=== PATIENT | male | born 2005 | race Asian ===

== ENCOUNTER 2024-08-03 19:02 | Emergency (ER) | payer OTHER ==
[~2024-08-03] VITALS: Ht 182.9 cm; Wt 106.8 kg
--- NOTE | 2024-08-03 21:05 | ED.PDOC ---
History of Present Illness(SKN HPI Comments PATIENT C/O LEFT BUTTOCK/ RECTAL PAIN. WAS SEEN AT URGENT CARE 2 DAYS AGO, PRESCRIBED IBUPROFEN AND TYLENOL WITHOUT RELIEF OF PAIN. STATES PAIN INCREASES WITH HAVING A BM, OR SITTING. Chief Complaint: Abscess Time Seen by MD: 19:23 History of Present Illness: Nurses Notes, Medications, Allergies Allergies: Coded Allergies: NO KNOWN ALLERGIES (Unverified , 08/03/24) Home Meds Active Scripts Oxycodone W/ Acetaminophen (Percocet 5/325MG) 1 Tab Tb, 2 TAB PO QID PRN for 4 Days, #32 TAB Prov:SARAH GRANDA MD 08/04/24 Sulfamethoxazole W/Trimethopri (Bactrim Ds Tablet) 1 Tab Tb, 1 TAB PO BID for 10 Days, #20 TAB Prov:SARAH GRANDA MD 08/04/24 Information Source: Patient Mode of Arrival: Ambulatory Past Medical History PAST MEDICAL HISTORY: Denies Surgical History: Denies all surgeries Constitutional: denies: chills, diaphoresis, fatigue, fever, malaise, sweats, weakness, others EENTM: denies: blurred vision, double vision, ear bleeding, ear discharge, ear drainage, ear pain, ear ringing, eye pain, eye redness, hearing loss, mouth leta n, mouth swelling, nasal discharge, nose bleeding, nose congestion, nose pain, photophobia, tearing, throat pain, throat swelling, voice changes, others Respiratory: denies: cough, hemoptysis, orthopnea, SOB at rest, shortness of breath, SOB with excertion, stridor, wheezing, others Cardiovascular: denies: chest pain, dizzy spells, diaphoresis, Dyspnea on exertion, edema, irregular heart beat, left arm pain, lightheadedness, palpitations, PND, syncope, others Gastrointestinal: denies: abdomen distended, abdominal pain, blood streaked bowels, constipated, diarrhea, dysphagia, difficulty swallowing, hematemesis, melena, nausea, poor appetite, poor fluid intake, rectal bleeding, rectal pain, vomiting, others Genitourinary: denies: burning, dysuria, flank pain, frequency, hematuria, incontinence, penile discharge, penile sore, pain, testicle pain, testicle swelling, urgency, others Neurological: denies: dizziness, fainting, headache, left sided numbness, left sided weakness, numbness, paresthesia, pre-existing deficit, right sided numbness, right sided weakness, seizure, speech problems, tingling, tremors, weakness, others Musculoskeletal: reports: others (LEFT BUTTOCK PAIN ); denies: back pain, gout, joint pain, joint swelling, muscle pain, muscle stiffness, neck pain Integumetry: denies: bruises, change in color, change in hair/nails, dryness, laceration, lesions, lumps, rash, wounds, others Allergic/Immunocompromised: denies: Difficulty Healing, Frequent Infections, Hives, Itching, others Hematologic/Lymphatic: denies: anemia, blood clots, easy bleeding, easy bruising, swollen glands, others Endocrine: denies: excessive hunger, excessive sweating, excessive thirst, excessive urination, flushing, intolerance to cold, intolerance to heat, unexplained weight gain, unexplained weight loss, others Psychiatric: denies: anxiety, bipolar disorder, depression, hopeless, panic disorder, schizophrenia, sleepless, suicidal, others Physical Exam General Appearance: No Apparent Distress, Normal HEENT: Pharynx Normal Neck: Full Range of Motion, Non-Tender Respiratory: Lungs Clear, No Respiratory Distress, Normal Breath Sounds Cardiovascular: No Murmur, Normal Peripheral Pulses, Regular Rate/Rhythm Breast Exam: Deferred Gastrointestinal: No Organomegaly, Non Tender, No Pulsatile Mass, Normal Bowel Sounds, Soft Genitalia: Deferred Pelvic: Deferred Rectal: Deferred Extremities: Normal capillary refill, Normal inspection, Normal range of motion, Non-tender, No pedal edema Musculoskeletal : Apperance: Normal Neurologic: Alert, No Motor Deficits, Normal Affect, Normal Mood, No Sensory Deficits Cerebellar Function: Normal Reflexes: Normal Skin: Dry, Normal Color, Warm, Other (MODERATE TENDERNESS PALPATED OVER LEFT BUTTOCK AND GLUTEAL FOLD NO OBVIOUS EXTERNAL CELLULITIS OR ABSCESS) Lymphatic: No Adenopathy Was a procedure done? Was a procedure done?: No Differential Diagnosis (INTG) Differential Diagnosis: Cellulitis X-Ray, Labs, Meds, VS Vital Signs Date Time Temp Pulse Resp B/P (MAP) Pulse Ox O2 Delivery O2 Flow Rate FiO2 08/04/24 00:31 99.3 101 18 153/71 (98) 96 99.3 08/04/24 00:14 101 18 153/71 08/03/24 23:56 95 18 95 Room Air* 0 21 08/03/24 23:44 95 18 143/97 08/03/24 22:21 98.2 95 18 143/97 (112) 97 98.2 08/03/24 19:15 99.4 108 19 155/98 (117) 98 99.4 Time of 1ST Reevaluation: 19:30 Reevaluation 1ST: Unchanged Time of 2ND Reevaluation: 00:24 Reevaluation 2ND: Improved Patient Education/Counseling: Diagnosis, Treatment, Prognosis, Need For Follow Up Family Education/Counseling: No Family Present Departure 1 Departure Time of Disposition: 00:23 Impression: Primary Impression: Abscess, perianal Disposition: 01 HOME / SELF CARE / HOMELESS Condition: Stable e-Prescriptions Oxycodone W/ Acetaminophen (Percocet 5/325MG) 1 Tab Tb 2 TAB PO QID PRN for 4 Days, #32 TAB Prov: SARAH GRANDA MD 08/04/24 Sulfamethoxazole W/Trimethopri (Bactrim Ds Tablet) 1 Tab Tb 1 TAB PO BID for 10 Days, #20 TAB Prov: SARAH GRANDA MD 08/04/24 Discharged With: Relative (Mother) Critical Care Note Critical Care Time?: No Stability Stability form required: PETR Holliday August 03, 2024 21:05
[2024-08-03] MEDS: MORPHINE SULFATE INJ 2 MG/ml SYRG IM ONE (23:44)
--- NOTE | 2024-08-03 23:47 | DVH ---
CLINICAL HISTORY: Rectal/buttocks pain right side rule out rectal abscess TECHNIQUE: CT of the pelvis was performed without intravenous contrast. This exam was performed acco rding to our departmental dose optimization program. Up-to-date CT equipment and radiation dose reduc tion techniques are utilized as appropriate. CTDI: 0.48+ 22.89 DLP: 876.37 WID: COMPARISON: None FINDINGS: There is a small fluid collection in the medial left gluteal cleft measuring 1.4 x 3.3 cm on series 2 , image 102. Mild Asymmetric soft tissue stranding in the left gluteal cleft. The small and large bowel loops are normal in caliber in the pelvis. Normal appendix. No pelvic lymph adenopathy. Urinary bladder is mildly distended without wall thickening. Normal sized prostate gland . Seminal vesicles are grossly unremarkable. No pelvic lymphadenopathy. There is no fluid collection or free air in the pelvis. There are prominent inguinal lymph nodes , greater on the right. Normal mi neralization alignment. Joint spaces preserved. No acute fracture. Muscle bundles about the pelvis a re unremarkable. IMPRESSION: 1. Small fluid collection in the medial left gluteal cleft which could reflect a small left perianal abscess. 2. Very mild asymmetric left gluteal cleft which could reflect associated cellulitis.
[2024-08-03] MEDS: ONDANSETRON ODT 4 MG TAB PO ONE (23:51)
[2024-08-03 23:56] VITALS: PULSE 95; RESP 18; O2SAT 95
[2024-08-04] MEDS ORDERED: BACDST PO ×2 (00:26→00:43)
[2024-08-04 00:31] VITALS: BP 153/71; PULSE 101; RESP 18; TEMP 99.3; O2SAT 96
[2024-08-04] MEDS: cefTRIAXone SOD 1,000 MG VL IM ONE (00:39)
[2024-08-04] MEDS ORDERED: PERCOT PO ×2 (00:42→00:43)
== END 2024-08-04 00:48 | disposition home or self-care (01) ==
LOC: ER 19:02
DX: K61.0 Anal abscess (principal)
CPT/HCPCS: 72192; 96372; 99285; J0696; J2270; Q0162